=== PATIENT | male | born 1975 | race Caucasian/White ===

== ENCOUNTER 2018-02-10 06:19 | Day surgery (SDC) | payer BC ==
[2018-02-05 09:15] VITALS: BMI 29.1
[~2018-02-10 06:19] MED LIST: DEXAMETHASONE SOD PHOSPHATE 10 MG/ML 1 ML VIAL IV ONE; LACTATED RINGERS 1,000 ML IV SCH; MIDAZOLAM 2 MG/2 ML VIAL IV PRN; Pre Op ABX Message 1 EACH MISC MISCELLANE ONE; SCOPOLAMINE 1.5MG/72HR PATCH TRANSDERM ONE
[2018-02-10] MEDS ORDERED: LIDOCAINE 1% 20 ML VIAL (10MG/ML) FOR IV START INTRADERMA ONE (06:57)
[2018-02-10] MEDS: ONDANSETRON 4 MG/2 ML VIAL IVP ONE ×2 (06:58→10:30)
[2018-02-10] MEDS ORDERED: ROPIVACAINE 5 MG/ML 30 ML VIAL MISCELLANE ONE (07:28)
[2018-02-10] MEDS ORDERED: PROPOFOL 10 MG/ML 20 ML VIAL IV ONE (08:15)
[2018-02-10] MEDS ORDERED: HYDROmorphone (PF) 1 MG/ML ONE (08:15)
[2018-02-10] MEDS ORDERED: KETOROLAC 30 MG/ML 1 ML VIAL ONE (08:15)
[2018-02-10] MEDS ORDERED: fentaNYL (PF) 50 MCG/ML 2 ML AMP ONE (08:15)
[2018-02-10] MEDS ORDERED: SUCCINYLCHOLINE CHLORIDE 100 MG/5 ML SYR IV ONE (08:15)
[2018-02-10] MEDS ORDERED: MIDAZOLAM 2 MG/2 ML VIAL ONE (08:15)
[2018-02-10] MEDS ORDERED: LIDOCAINE 1% INJ 10MG/ML (20 ML MDV) ONE (08:15)
[2018-02-10] MEDS ORDERED: SODIUM CHLORIDE 0.9% 50 ML with ceFAZolin 2,000 MG IV ONE ×2 (08:33)
[2018-02-10 10:26] VITALS: TEMP 97.1
[2018-02-10] MEDS: HYDROmorphone 0.5 MG/0.5 ML SYRINGE IVP PRN ×2 (10:30→10:38)
[2018-02-10] MEDS ORDERED: MEPERIDINE 50 MG/ML SYRINGE IVP ONE (10:49)
[2018-02-10 11:27] VITALS: RESP 18
[2018-02-10 11:57] VITALS: PULSE 94
[2018-02-10 11:58] VITALS: BP 112/70
--- NOTE | 2018-02-24 17:18 | P.OP ---
Date of Procedure: 02/10/18 Procedure(s) Performed: PREOPERATIVE DIAGNOSES: 1. Right knee anterior cruciate ligament tear; 2. Posterior horn medial meniscus tear, degenerative POSTOPERATIVE DIAGNOSES: 1. Right knee anterior cruciate ligament tear; 2. Posterior horn medial meniscus tear, degenerative PROCEDURES PERFORMED: 1. Right knee arthroscopically-assisted anterior cruciate ligament reconstruction with soft tissue allograft 2. Right knee arthroscopic partial medial meniscectomy ANESTHESIA: vermin exterminator: Madhavi Kauffman PA-C (assistance with: patient positioning, retraction, graft prep, camera operation, reconstruction, irrigation, closure, dressing) COMPLICATIONS: None ESTIMATED BLOOD LOSS: Less than 20 cc TOURNIQUET: 75 minutes DISPOSITION: To post-anesthesia care unit INDICATIONS: Faustino is a 42-year-old male with a history of right knee ACL tear. We have discussed different approaches to ACL reconstruction and the decision is for hamstring autograft reconstruction with possible meniscal repair versus debridement. I have explained the details of this surgery thoroughly and also explained the potential risks and complications, including the relative risks of graft failure. Other risks are inclusive of, but not limited to: bleeding, infection, scarring, discomfort, blood vessel and nerve damage, stiffness, weakness, need for further surgery, failure to relieve symptoms, persistence or worsening of problems, , and other risks. The patient and parents are aware of these risks and agree to proceed with surgery. The consent form has been signed. PROCEDURE: After appropriate consent was obtained, the patient was taken to the operating room and placed supine on the operating table. General anesthesia was initiated. The knee was examined under anesthesia. Medial collateral, lateral collateral and posterior cruciate ligaments were all intact. There was positive pivot shift of 2+ and 4mm anterior translation with both Rodolfo and anterior drawer. Full range of motion was noted without crepitus. No effusion or soft tissue swelling was noted. Prepping and draping of the right knee was performed in the usual sterile fashion using ChloraPrep. Care was taken that all pressure points were adequately padded. Leg adams and pneumotourniquet were used. Time-out was called according to JCAHO standards, confirming patient identity, surgical procedure, side, and antibiotic administration. Graft preparation took place on the Arthrex graft preparation station. The preprepared graft was inserted onto the Arthrex ACL tightrope RT on one side , and the ABS sutures on the other. These devices were then attached to the adjustable sliding units on the prep station. The graft was then set to 20 pounds of tension on the graft prep board and covered with a sterile saline soaked gauze pad. During the preparation of the graft, arthroscopy commenced. The surgical portals were placed directly next to the patellar tendon medially and laterally. Camera and instruments were carefully inserted into the knee and arthroscopy was performed. The patellofemoral joint was normal. Hyaline cartilage was normal. No loose bodies in the medial or lateral gutters, quad tendon normal. No plica. Lateral compartment showed normal hyaline cartilage without defect. Meniscus was normal to visualization and probing. No loose bodies were seen within the lateral compartment. Medial compartment was then examined. Medial hyaline cartilage of the femur and tibia were normal. Medial meniscus showed a degenerative posterior horn meniscus tear with an unstable appearance. Approximately 15% of the meniscus was resected using a shaver and basket forceps. Meniscal remnant was probed and found to be stable.. The notch of the knee was then inspected. The patient had a complete tear of the ACL at the femoral attachment with a small Cyclops lesion. The remnant was debrided away with care to avoid injuring the PCL. The notch in this patient was somewhat narrow, and so it was expanded in the lateral direction with a janine. Only 3 mm of bone was resected from the lateral portion of the notch, just enough to get the guide in.. The soft tissue on the lateral side of the notch was cleared as necessary using a shaver. Next, the femoral socket was created using the Arthrex flip cutter guide. The guide was adjusted through the anterolateral portal after careful measurement of the anterior to posterior condylar distance on the lateral notch. A spot approximately between 40 and 50% of this length was chosen and the guide was moved superiorly only as much as to allow for a 2.5 mm back wall. Incision was created on the lateral side of the thigh over the IT band and the guide was placed against the bone. Guide position was adjusted so that there was 20 of anterior elevation in the coronal plane of the femur and 60 in the sagittal plane. Drilling was then performed using the flip cutter drill pin into the knee at the appropriate location. Once the pin position was noted to be satisfactory, the guide was removed and the drill sleeve was tapped into the bone using a mallet. The flip cutter was then deployed and retro-drilling was performed to create a femoral socket of approximately 9.5 mm. Debris was suctioned out using a shaver. Passing suture was then inserted into the knee joint and carried out through the anteromedial portal. The tibial tunnel was created by the following steps. The retro-cutter aiming guide for the tunnel was placed into the anteromedial portal and onto the cleared central footprint of the [place] ACL. The guide cylinder was placed securely on the tibial cortex. The tibial bone length was measured. The retro- cutter guide pin was then inserted into the tibia to emerge at the mid- posterior aspect of the [place] ACL footprint, approximately 5 mm from the PCL and just anterior to the posterior border of the anterior horn of the lateral meniscus. The pin was noted to be in excellent position. The retro-cutter was then deployed and reverse drilling was performed creating a tibial socket approximately 30 mm in length. No fracture was noted. The intraarticular debris was removed using a shaver. Graft passing suture was placed. The femoral portion of the GraftLink construct was then inserted into the knee joint, guided by the passing suture. The Endobutton was carried through the femoral cortex and flipped, engaging the cortex securely. Approximately 10 mm or so of the graft was then placed into the femoral socket, using the sutures of the Endobutton. In similar fashion, the graft passing suture was placed into the loop and brought out through the tibial tunnel. This brought the tibial ABS sutures along with it. Approximately 15 mm of graft was placed within the tibial tunnel at which point the adjustable button for the tibia was placed on the sutures. The femoral portion of the graft was completely deployed at this point and bottomed out nicely. The adjustable button was confirmed to be on the cortex of the tibia without interposed soft tissue and preliminary tensioning was performed at that point in full extension. No graft impingement was noted. The knee was then taken through range of motion cycling 10 times. There was no significant motion of the graft detected and the femoral and tibial fixation was noted to be solid. Further tightening of the sutures was performed in extension from the tibial side and the knee was cycled 10 more times with final tightening of the sutures at that point. Sutures were then tied together over the button. Knee was then taken through range of motion which was noted to be full. No graft impingement was noted at the roof or sides of the notch. Fluid was removed from the knee and testing was performed. Anterior drawer 0 mm and Rodolfo 0 mm. Negative pivot shift. Tourniquet was deflated. Hemostasis was obtained using cautery and pressure. Graft passing sutures were removed or cut as necessary. Thorough irrigation using antibiotic solution was performed, and portals were closed with 4-0 Monocryl suture. Posterior medial incision for hamstring harvest was closed with 3-0 Vicryl suture in the subcutaneous tissue, followed by 4-0 Monocryl suture in running subcuticular fashion for the skin, followed by Dermabond. Tibial incision was closed with 4-0 Monocryl for the skin. Steri strips were applied. Sterile dressing and light compressive dressing was applied using Webril and PAMELA wrap. Knee immobilizer was applied. Patient tolerated the procedure well and taken to recovery room in stable condition. Sponge and needle counts were correct.
== END 2018-02-10 12:52 | disposition home or self-care (01) ==
LOC: OR 06:19
PROVIDERS: ATTEND Orthopaedic Surgery
DX: S83.511A Sprain of anterior cruciate ligament of right knee, initial encounter (principal); S83.411A Sprain of medial collateral ligament of right knee, initial encounter; M84.361D Stress fracture, right tibia, subsequent encounter for fracture with routine healing; S83.421A Sprain of lateral collateral ligament of right knee, initial encounter; M71.21 Synovial cyst of popliteal space [Baker], right knee; M23.321 Other meniscus derangements, posterior horn of medial meniscus, right knee; Z79.1 Long term (current) use of non-steroidal anti-inflammatories (NSAID); Z87.891 Personal history of nicotine dependence
CPT/HCPCS: 29888; 29881; C1713 ×2; J2250; J1100; J2175; J2405; J2001; J3010; J1885; J1170 ×2; J0690; J2795; J0330; J2704